=== PATIENT | female | born 1930 | race Caucasian/White ===

== ENCOUNTER 2018-12-22 08:47 | Outpatient (CLI) | payer MEDICARE, OTHER ==
--- NOTE | 2018-12-22 10:39 | CT ---
CT Abdomen Pelvis W Con History: Abdominal pain Comparison: CT 2009 Findings: Mild scarring lung bases. No pericardial effusion. Heart size is enlarged. Small peripheral focus of flash enhancement hepatic segment 8 slightly enlarged from 2009 likely a fl damion filling hemangioma. Focal fatty infiltration hepatic segment IVb. 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 High-grade narrowing of the proximal right renal artery due to combination of calcific and soft plaque. There is a lumbosacral transitional vertebra with the L5 vertebra being a III be lumbosacral transitional vertebra with grad e 1 L4 over L5 anterolisthesis. No dilated loops of large or small bowel. Small linear filling defect extending from the splenic vein into the main portal vein without signifi cant evidence of venous congestion. Impression: 1. Small linear filling defect within the splenic vein extending into the main portal vein. The splen ic venous component measures 2 cm and the main portal vein component measures approximately 1 cm. This involves less than 20% of the luminal volume. 2. 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 3. High-grade stenosis proximal right renal artery due to combination of calcific and soft plaque. 4. Small focal area of enhancement hepatic segment VIII near the dome likely flash filling hemangioma s axial images 14 and 19. 5. Circumferential luminal narrowing gastric antrum. Upper endoscopy recommended.
[2018-12-22] MEDS ORDERED: Iopamidol 370 76% 100 ML VIAL ONE (12:19)
== END 2018-12-22 08:48 | disposition home or self-care (01) ==
LOC: CT 08:47
PROVIDERS: ATTEND Physician Assistant Medical
DX: K21.9 Gastro-esophageal reflux disease without esophagitis (principal); R10.84 Generalized abdominal pain; D50.9 Iron deficiency anemia, unspecified; R19.4 Change in bowel habit; R14.3 Flatulence; R14.2 Eructation; R14.1 Gas pain; N26.1 Atrophy of kidney (terminal); I70.1 Atherosclerosis of renal artery; R93.2 Abnormal findings on diagnostic imaging of liver and biliary tract
CPT/HCPCS: 74177; 82565; Q9967

== ENCOUNTER 2019-01-13 09:13 | Outpatient (CLI) | payer MEDICARE, OTHER ==
--- NOTE | 2019-01-13 10:12 | ULT ---
HEPATIC DOPPLER: HISTORY: Abnormal abdomen CT. Abdominal pain. Possible splenic vein thrombosis. COMPARISON: None. CORRELATION: Abdomen and pelvis CT from 12/22/2018. TECHNIQUE: The liver was interrogated with gonzales-scale, color-flow, Doppler imaging and spectral wave-form analys is. FINDINGS: The head and proximal pancreatic body have a normal echotexture. The remainder of the pancreas is obs cured by bowel gas. The hepatic parenchyma has a normal echotexture. No hepatic masses or intrahepatic biliary dilatation . The contour of the hepatic margin is maintained. The right hepatic lobe measures 14.8 cm. A small right-sided pleural effusion is noted. Common bile duct diameter is 0.4 cm. No sonographic evidence of cholelithiasis, gallbladder wall thickening or pericholecystic fluid. The spleen has a normal echotexture, measuring 9.6 cm in maximum dimension. There is a small amount o f left-sided pleural fluid. Hepatic Doppler: There is patency and appropriate directional flow in the main portal vein, left port al vein, right portal vein, middle hepatic vein, left hepatic vein, right hepatic vein and hepatic artery. The splenic vein and artery have patency and appropriate directional flow. IMPRESSION: 1. Small bilateral pleural effusions. 2. Normal hepatic Doppler. 3. The previously noted thrombus in the splenic vein is too small to appreciate sonographically. Ther e does not appear to be any obvious or large thrombosis of the splenic vein on the current ultrasound. If there is still concern for incomplete resolution of thrombus, follow-up CT can be perf ormed. Transcribed Date/Time: 01/13/2019 10:30 AM
== END 2019-01-13 09:14 | disposition home or self-care (01) ==
LOC: BICULT 09:13
PROVIDERS: ATTEND Physician Assistant Medical
DX: R93.3 Abnormal findings on diagnostic imaging of other parts of digestive tract (principal); J90 Pleural effusion, not elsewhere classified; I82.890 Acute embolism and thrombosis of other specified veins
CPT/HCPCS: 76705